=== PATIENT | female | born 1985 | race Caucasian/White ===

== ENCOUNTER 2018-03-14 02:32 | Emergency (ER) | payer BC ==
--- NOTE | 2018-03-14 03:04 | EDM.PDOC ---
ED HPI GENERAL MEDICAL PROBLEM - General Chief Complaint: Genitourinary Problem Stated Complaint: BLEEDING PROFUSELY Time Seen by Provider: 03/14/18 02:44 - History of Present Illness INITIAL COMMENTS - FREE TEXT/NARRATIVE: HISTORY AND PHYSICAL: History of present illness: The patient is a healthy 32-year-old female who presents with complaints of vaginal bleeding that started while she was having sexual intercourse about 20 minutes ago. The patient currently only follows with Dr. Moeller at [facility] and does not see a cabin supervisor specifically and says that she has not had sexual intercourse for a while in tonight was the first time in a long time and during intercourse, where she was on top facing away from her partner she had sudden onset of vaginal bleeding and came in for evaluation. On my initial conversation with her she was not actively bleeding and had some lower abdominal discomfort but no nausea no vomiting no lightheadedness. During this event this evening no other toys or objects were placed in the vagina other than a penis. Review of systems: As per history of present illness and below otherwise all systems reviewed and negative. Past medical history: As per history of present illness and as reviewed below otherwise noncontributory. Surgical history: As per history of present illness and as reviewed below otherwise noncontributory. Social history: No reported history of drug or alcohol abuse. Family history: As per history of present illness and as reviewed below otherwise noncontributory. Physical exam: General: Well-developed well-nourished female who is nontoxic and vital signs are stable and noted by me HEENT: Atraumatic, normocephalic, negative for conjunctival pallor or scleral icterus, mucous membranes moist, throat clear, neck supple, nontender, trachea midline. Lungs: Clear to auscultation, breath sounds equal bilaterally, chest nontender. Heart: S1S2, regular rate and rhythm no overt murmurs Abdomen: Soft, nondistended, nontender. Negative for masses or hepatosplenomegaly. NABS Pelvis: Stable nontender. Genitourinary: External genitalia are within normal limits and there is no evidence of any swelling or injuries but there is a scant amount of blood at the introitus. On speculum exam the cervix is multiparous and there is a slight trickle per os of blood but there is no cervical laceration or tear appreciated and there is no vaginal tear on my inspection. There is no copious bleeding and just a small trickle process. Rectal: Deferred. Extremities: Atraumatic, negative for cords or calf pain. Neurovascular unremarkable. Neuro: Awake, alert, oriented. Cranial nerves II through XII unremarkable. Cerebellum unremarkable. Motor and sensory unremarkable throughout. Exam nonfocal. Diagnostics: [] Therapeutics: [] Told the patient that there is no active source of bleeding currently and no vaginal tears and that we should be treating this symptomatically. I strongly advised her to follow-up with gynecology and she has seen the women at [facility] in the past and will call for follow-up appointment. Their investigation as an outpatient if this persists or continues. SHe states understanding Impression: Vaginal bleeding during sexual intercourse stable Definitive disposition and diagnosis as appropriate pending reevaluation and review of above. - Related Data Allergies Allergy/AdvReac Type Severity Reaction Status Date / Time No Known Allergies Allergy Verified 12/28/14 19:47 ED ROS GENERAL - Review of Systems Review Of Systems: ROS reveals no pertinent complaints other than HPI. ED EXAM, GENERAL - Physical Exam Exam: See Below (see Dictation) Departure - Departure Time of Disposition: 03:02 Disposition: Home, Self-Care 01 Condition: Good Clinical Impression: Vaginal bleeding, abnormal - Discharge Information Referrals: Cecily Moeller DO [Primary Care Provider] - Additional Instructions: The following information is given to patients seen in the emergency department who are being discharged to home. This information is to outline your options for follow-up care. We provide all patients seen in our emergency department with a follow-up referral. The need for follow-up, as well as the timing and circumstances, are variable depending upon the specifics of your emergency department visit. If you don't have a primary care physician on staff, we will provide you with a referral. We always advise you to contact your personal physician following an emergency department visit to inform them of the circumstance of the visit and for follow-up with them and/or the need for any referrals to a consulting specialist. The emergency department will also refer you to a specialist when appropriate. This referral assures that you have the opportunity for followup care with a specialist. All of these measure are taken in an effort to provide you with optimal care, which includes your followup. Under all circumstances we always encourage you to contact your private physician who remains a resource for coordinating your care. When calling for followup care, please make the office aware that this follow-up is from your recent emergency room visit. If for any reason you are refused follow-up, please contact the [facility] emergency department at and ask to speak to the emergency department charge nurse. [facility] [address] [address] Use of pads and no tampons and pelvic rest and to you're followed up with a cabin supervisor. Please call the clinic tomorrow and be reevaluated for further care. This may just be a byproduct of some localized trauma but you should be evaluated for further causes of vaginal bleeding during intercourse. Return to ER as needed and as discussed
[2018-03-14 03:18] VITALS: BP 107/56
== END 2018-03-14 03:15 | disposition home or self-care (01) ==
LOC: MW.ED 02:32
DX: N93.9 Abnormal uterine and vaginal bleeding, unspecified (principal)
CPT/HCPCS: 99282; 99283